=== PATIENT | female | born 1940 | race Caucasian/White ===

== ENCOUNTER → 2020-03-20 | Outpatient (CLI) | payer MEDICARE, OTHER ==
--- NOTE | 2020-03-20 14:51 | RAD ---
DOPPLER CAROTID BILAT History: Reason: SYNCOPE, HTN, HX OF SMOKING, LIGHTHEADEDNESS / Spl. Instructions: / History: Multiple grayscale, color, and duplex spectral analysis waveform sonographic images were acquired of the carotid, subclavian, and vertebral arteries. Comparison: None Findings: RIGHT SIDE: Peak systolic flow velocity of the distal CCA is 48 cm/sec. Peak systolic flow velocity of the ICA is 70 cm/sec. The ICA/CCA ratio is 1.3. Peak end diastolic flow velocity of the ICA is 20 cm/sec. The peak systolic velocity of the ECA is 74 cm/sec. Atherosclerotic plaque formation is identified. LEFT SIDE: Peak systolic flow velocity of the distal CCA is 55 cm/sec. Peak systolic flow velocity of the ICA is 77 cm/sec. The ICA/CCA ratio is 1.4. Peak end diastolic flow velocity of the ICA is 22 cm/sec. Peak systolic flow velocity of the ECA is 62 cm/sec. Atherosclerotic plaque formation is identified. Vertebral arteries: Bilateral vertebral arteries demonstrate antegrade flow. Impression: Atherosclerosis of the cervical ICAs with velocities consistent with less than 50 percent stenosis PQRS Compliance Statement - Stenosis calculations for carotid ultrasound studies are derived from validated velocity criteria which are known to correlate with the NASCET methodology. Electronically signed by: Tee Cramer MD (03/20/2020 2:49 PM) [id number]
== END | disposition home or self-care (01) ==
LOC: US 12:31
PROVIDERS: ATTEND Family Medicine
DX: I65.29 Occlusion and stenosis of unspecified carotid artery (principal); I10 Essential (primary) hypertension; Z87.891 Personal history of nicotine dependence; R55 Syncope and collapse
CPT/HCPCS: 93880

== ENCOUNTER 2020-04-19 12:04 | Emergency (ER) | payer MEDICARE, OTHER ==
[~2020-04-19] VITALS: Ht 152.4 cm; Wt 63.6 kg
[2020-04-19 12:10] VITALS: BP 150/77
--- NOTE | 2020-04-19 12:35 | PHYS DOC ---
Past History Past Medical History: Hypertension Past Surgical History: Hysterectomy Smoking: Non-smoker Alcohol Use: None Drug Use: None General Adult EDM: Chief Complaint: LOWER EXT PAIN HPI: HPI: Patient is a 80 year old Female who presents with Lower extremity pain after falling yesterday. Patient reports losing her balance when leaning over to greens picker broken dish outside. She denies loss of consciousness or syncope. She admits to trauma in her Left knee, Left chest, and Left side of head. She rates pain as 3/10 that stings and aches all the time. Patient mentions point tenderness around tibial tuberosity with radiation to ankle. She has tried ice and no medications. She is on blood thinners, Eliquis which was started 2 weeks ago. She has taken her AM dose. She denied any blood loss per mouth or rectum. Review of Systems: Review of Systems: Constitutional: Denies fever or chills Eyes: Denies redness or eye pain HENT: Denies nasal congestion or sore throat Respiratory: Denies cough or shortness of breath Cardiovascular: Denies chest pain or palpitations GI: Admits constipation. Denies abdominal pain, nausea, or vomiting : Denies dysuria or hematuria Musculoskeletal: Admits left leg pain. Denies back pain or joint pain Integument: Admits bruising. Denies rash or skin lesions Neurologic: Reports headache; denies focal weakness or sensory changes Complete systems were reviewed and found to be within normal limits, except as documented in this note. Allergies: Allergies: Allergies Coded Allergies Type Severity Reaction Last Updated Verified No Known Drug Allergies 04/19/20 No Physical Exam: PE: Constitutional: Well developed, well nourished, no acute distress, non-toxic appearance HENT: Normocephalic, atraumatic Eyes: PERRL, EOMI, conjunctiva normal, no discharge, no nystagmus Neck: Normal range of motion, no midline tenderness, supple Lungs & Thorax: No respiratory distress, equal chest rise and fall Abdomen: Soft, no tenderness Skin: Warm, dry, no erythema, no rash, Bruising on posterior to L anterior knee Back: No tenderness, no CVA tenderness Extremities: Point tenderness on Left tibial tuberosity and distal anterior tibia, mild edema, ROM intact Neurologic: Alert and oriented X 3, normal motor function, normal sensory function, no focal deficits noted Psychologic: Affect normal, judgment normal Radiology/Procedures: Radiology/Procedures: PROCEDURE: KNEE LEFT 3V EXAM: Left knee, 3 views. HISTORY: Fall. Pain. COMPARISON: None. FINDINGS: 3 views of the left knee are obtained. There is medial compartment joint space narrowing and spurring. There is no joint effusion. There is minimal enthesopathy along the superior patella. There is a soft tissue calcification within the prepatellar space. IMPRESSION: Mild medial compartment osteoarthritis of the left knee. No acute osseous finding. Electronically signed by: Katarina Jimenez MD (04/19/2020 12:54 PM) [id number] PROCEDURE: CT HEAD AND CERVICAL SPINE [facility] Compliance Statement: One or more of the following individualized dose reduction techniques were utilized for this examination: 1. Automated exposure control 2. Adjustment of the mA and/or kV according to patient size 3. Use of iterative reconstruction technique CT HEAD AND CERVICAL SPINE WITHOUT CONTRAST History: Reason: pain s/p fall, on eliquis / Spl. Instructions: / History: Comparison: None. Procedure: Axial images are obtained of the head from the skull base through the vertex without IV contrast. Noncontrast helical CT of the cervical spine was performed. Axial, sagittal, and coronal reconstructions were obtained. Findings: The ventricles and sulci are prominent, consistent with age-related cerebral atrophy. There is moderate supratentorial white matter hypoattenuation. This is a nonspecific finding but is commonly due to chronic small vessel ischemic disease in a patient of this age. Old right basal ganglia lacunar infarct. No mass-effect, midline shift, hemorrhage or obvious acute infarction is identified. Basilar cisterns are patent. Bone windows demonstrate no significant calvarial abnormality. The visualized paranasal sinuses are clear. Mastoid air cells are well aerated. There is no evidence of acute fracture or acute malalignment of the cervical spine. There are no perched or jumped facet joints. The facet joints are mildly hypertrophic. There is mild grade 1 anterolisthesis of C2 on C3. The alignment is otherwise maintained. There is disc space narrowing and endplate spurring of the cervical spine most apparent at C5/C6, C6/C7, and C4/C5. There is uncinate process hypertrophy at those same levels. This contributes to multilevel neural foraminal narrowing. There are bilateral carotid artery calcifications. The visualized lung apices are clear. IMPRESSION: 1. No acute intracranial abnormality. Chronic findings as above. 2. No acute fracture of the cervical spine. [id number] degenerative spondylosis. Electronically signed by: Sp Horn MD (04/19/2020 1:35 PM) [id number] Course & Med Decision Making: Course & Med Decision Making Patient is a 80yo female who presents after a fall and lower extremity pain. She fell on her left knee and her left chest and hit her the left side of her head. She was seen and examined. PE revealed bruising on L anterior knee with point tenderness on tibial tuberosity and distal anterior tibia. Patient did not request pain medications. Knee x-ray performed to rule out fracture did not find any acute findings but did note chronic osteoarthritis. Patient is placed into janes bandage and instructed to continue ice. Patient stable for discharge with outpatient follow-up with PCP/Orthopedics. Orthopedic referral provided. Discussed findings and plan with patient, who acknowledges understanding and agreement. Dragon Disclaimer: Dragon Disclaimer: This electronic medical record was generated, in whole or in part, using a voice recognition dictation system. Splinting Splinting : Location: Left knee Pre-Made Type: Janes bandage Pre-Proc Neuro Vasc Exam: normal Post-Proc Neuro Vasc Exam: normal, unchanged from pre-exam Departure Departure: Impression: Primary Impression: Fall Qualified Codes: W19.XXXA - Unspecified fall, initial encounter Additional Impressions: Head contusion Qualified Codes: S00.03XA - Contusion of scalp, initial encounter Knee contusion Qualified Codes: S80.02XA - Contusion of left knee, initial encounter Osteoarthritis Qualified Codes: M17.12 - Unilateral primary osteoarthritis, left knee Disposition: 01 DC HOME SELF CARE/HOMELESS Condition: STABLE Referrals: EVANS RODRIGUEZ (PCP) KALIN HAMILTON MD Patient Instructions: Contusion, [id number], Facial or Scalp Contusion, [id number], Fall Prevention and Home Safety, [id number], Knee Wraps (Elastic Bandage) and RICE, Osteoarthritis Additional Instructions: ICE areas of discomfort 20 min on then leave off next 20 mins for next few days. Take over the counter Tylenol for pain or discomfort. SVETLANA JACKSON DO Apr 19, 2020 12:35
--- NOTE | 2020-04-19 12:57 | RAD ---
EXAM: Left knee, 3 views. HISTORY: Fall. Pain. COMPARISON: None. FINDINGS: 3 views of the left knee are obtained. There is medial compartment joint space narrowing and spurring. There is no joint effusion. There is minimal enthesopathy along the superior patella. There is a soft tissue calcification within the prepatellar space. IMPRESSION: Mild medial compartment osteoarthritis of the left knee. No acute osseous finding. Electronically signed by: Katarina Jimenez MD (04/19/2020 12:54 PM) [id number]
--- NOTE | 2020-04-19 13:38 | RAD ---
PQRS Compliance Statement: One or more of the following individualized dose reduction techniques were utilized for this examination: 1. Automated exposure control 2. Adjustment of the mA and/or kV according to patient size 3. Use of iterative reconstruction technique CT HEAD AND CERVICAL SPINE WITHOUT CONTRAST History: Reason: pain s/p fall, on eliquis / Spl. Instructions: / History: Comparison: None. Procedure: Axial images are obtained of the head from the skull base through the vertex without IV contrast. Noncontrast helical CT of the cervical spine was performed. Axial, sagittal, and coronal reconstructions were obtained. Findings: The ventricles and sulci are prominent, consistent with age-related cerebral atrophy. There is moderate supratentorial white matter hypoattenuation. This is a nonspecific finding but is commonly due to chronic small vessel ischemic disease in a patient of this age. Old right basal ganglia lacunar infarct. No mass-effect, midline shift, hemorrhage or obvious acute infarction is identified. Basilar cisterns are patent. Bone windows demonstrate no significant calvarial abnormality. The visualized paranasal sinuses are clear. Mastoid air cells are well aerated. There is no evidence of acute fracture or acute malalignment of the cervical spine. There are no perched or jumped facet joints. The facet joints are mildly hypertrophic. There is mild grade 1 anterolisthesis of C2 on C3. The alignment is otherwise maintained. There is disc space narrowing and endplate spurring of the cervical spine most apparent at C5/C6, C6/C7, and C4/C5. There is uncinate process hypertrophy at those same levels. This contributes to multilevel neural foraminal narrowing. There are bilateral carotid artery calcifications. The visualized lung apices are clear. IMPRESSION: 1. No acute intracranial abnormality. Chronic findings as above. 2. No acute fracture of the cervical spine. [id number] degenerative spondylosis. Electronically signed by: Sp Horn MD (04/19/2020 1:35 PM) [id number]
== END 2020-04-19 14:17 | disposition home or self-care (01) ==
LOC: ER 12:04
DX: S80.02XA Contusion of left knee, initial encounter (principal); S00.03XA Contusion of scalp, initial encounter; K59.00 Constipation, unspecified; I10 Essential (primary) hypertension; W18.39XA Other fall on same level, initial encounter; Y93.89 Activity, other specified; Y92.89 Other specified places as the place of occurrence of the external cause; Y99.8 Other external cause status
CPT/HCPCS: 70450; 72125; 73562; 99285-25

== ENCOUNTER → 2020-04-27 | Outpatient (CLI) | payer MEDICARE, OTHER ==
[2020-04-19 12:10] VITALS: BP 150/77
--- NOTE | 2020-04-28 09:58 | RAD ---
Noncontrast CT scan of the chest without comparison for abscess of the middle lobe of the right lung with pneumonia. TECHNIQUE: Contiguous axial CT images are obtained to the chest. Sagittal and coronal reformations are evaluated. FINDINGS: There is atelectasis of the lingula and the right medial basilar segment, as well as subsegmental atelectasis and/or consolidation in the left posterior basilar segment. No lung parenchymal abscess are identified. No pulmonary nodules or masses are seen. There is a small left pleural effusion. Coronary artery calcifications are seen in multiple distributions. Very small pericardial effusion is present. No suspicious mediastinal, axillary, or hilar lymphadenopathy is seen. Central airways are patent. There is mild dilatation of the terminal esophagus, which is difficult to characterize on this exam, and could reflect a small hiatal hernia or distal esophageal abnormality. There is a subacute healing compression fracture of T11, with superior endplate compression fracture of T12 appearing chronic and healed. There is retrolisthesis of L1 and L2 resulting in canal stenosis at this level. There is a subtle peculiar nodular appearance to the left breast parenchyma, which may be physiologic, but further evaluation with mammography and physical examination is recommended. IMPRESSION: 1. No evidence of lung abscess. 2. Small area of consolidation or atelectasis in the posterior basilar segment of the left lung. 3. Left basilar effusion. 4. Small pericardial effusion. 5. Segmental atelectasis involving the lingula and the medial basilar segment of the right lung. 6. Particular nodular appearance to the left breast parenchyma. A physical examination is recommended. 7. Subacute healing compression fracture T11. Compression fracture T12 appears chronic and healed. 8. Central spinal canal stenosis at L1-2. PQRS Compliance Statement: One or more of the following individualized dose reduction techniques were utilized for this examination: 1. Automated exposure control 2. Adjustment of the mA and/or kV according to patient size 3. Use of iterative reconstruction technique Electronically signed by: Mir Díaz MD (04/28/2020 9:55 AM) [facility]6
== END ==
LOC: CT 12:26
PROVIDERS: ATTEND Family Medicine
DX: J85.1 Abscess of lung with pneumonia (principal); I31.3 Pericardial effusion (noninflammatory); N63.20 Unspecified lump in the left breast, unspecified quadrant; M48.54XA Collapsed vertebra, not elsewhere classified, thoracic region, initial encounter for fracture; M48.061 Spinal stenosis, lumbar region without neurogenic claudication
CPT/HCPCS: 71250

== ENCOUNTER → 2020-05-25 | Outpatient (CLI) | payer MEDICARE, OTHER ==
--- NOTE | 2020-05-25 16:35 | RAD ---
Examination: MG DIAGNOSTIC BILAT History: Reason: LEFT BREAST ABNORAMLITY on CT exam performed recently/ Comparison/Correlation: 03/01/2014 and 02/16/2015 mammographic exams, 04/27/[address] chest without contra st Technique: MLO and CC digital tomosynthesis (3D) images obtained. Radiologist reviewed these images on dedicated workstation. Findings: Breast Tissue Density C : The breasts are heterogeneously dense, which may obscure small masses. There are no dominant masses, suspicious microcalcifications, or architectural distortion. No suspic ious process identified to correspond with the finding in question on recent CT exam. IMPRESSION: No mammographic evidence of malignancy. Recommend routine screening. BI-RADS category 1: Negative. The images were reviewed with computer-aided detection. Patient information is entered into reminder system with a target due date for the next screening yulia mogram. Mammography is the most sensitive method for finding small breast cancers, but it does not detect the m all and is not a substitute for careful clinical examination. A negative mammogram does not negate a clinically suspicious finding and should not result in delay in biopsying a clinically suspicious a bnormality. "Our facility is accredited by the [employer] Mammography Program." Electronically signed by: Aashish Toledo MD (05/25/2020 4:32 PM) [id number]
== END ==
LOC: MAMMO 13:36
PROVIDERS: ATTEND Family Medicine
DX: R92.8 Other abnormal and inconclusive findings on diagnostic imaging of breast (principal); R93.89 Abnormal findings on diagnostic imaging of other specified body structures
CPT/HCPCS: 77066